=== PATIENT | male | born 1975 | race Caucasian/White ===

== ENCOUNTER 2020-01-23 07:50 | Emergency (ER) | payer OTHER ==
[2020-01-23 08:12] VITALS: BP 122/88
[2020-01-23] MEDS ORDERED: TETANUS/DIPHTHERIA/PERTUSSIS 0.5 ML SYRINGE IM ONE (08:23)
--- NOTE | 2020-01-23 08:24 | ED Physician Documentation ---
PD HPI HEAD INJURY - Stated complaint Stated Complaint: HEAD LAC - Chief complaint Chief Complaint: Laceration - History obtained from History obtained from: Patient - Additional information Additional information: He walked into a sharp metal edge at work. Has a head laceration. Tetanus was 9 years ago. No LOC/RICCI Review of Systems Constitutional: reports: Reviewed and negative Eyes: reports: Reviewed and negative Nose: reports: Reviewed and negative PD PAST MEDICAL HISTORY - Past Surgical History General: Appendectomy - Social History Does the pt smoke?: Yes PD ED PE NORMAL - Vitals Vital signs reviewed: Yes - General General: Alert and oriented X 3, No acute distress - HEENT HEENT: PERRL, EOMI, Other (2 cm shallow laceration just below the hairline on the upper mid forehead) - Neuro Neuro: Alert and oriented X 3, Normal speech Results - Vitals Vitals: Vital Signs - 24 hr 01/23/20 08:06 Temperature 36.3 C L Heart Rate 86 Respiratory 16 Rate Blood Pressure 122/88 H O2 Saturation 99 Oxygen O2 Source Room air Procedures - Laceration (location) forehead Length in cm: 1.5 Wound type: Linear, Superficial Wound Preparation: Irrigated copiously NS Skin layer closure: Dermabond Other: Tetanus booster given Complexity: Simple Departure - Departure Disposition: 01 Home, Self Care Clinical Impression: Laceration Condition: Good Record reviewed to determine appropriate education?: Yes Instructions: ED Laceration Facial Skin Glue Discharge Date/Time: 01/23/20 08:33
== END 2020-01-23 08:33 | disposition home or self-care (01) ==
LOC: ED 07:50
DX: S01.81XA Laceration without foreign body of other part of head, initial encounter (principal); W26.8XXA Contact with other sharp object(s), not elsewhere classified, initial encounter; Y99.0 Civilian activity done for income or pay; F17.200 Nicotine dependence, unspecified, uncomplicated
CPT/HCPCS: 12011; 99281; 99282

== ENCOUNTER 2020-12-16 04:30 | Emergency (ER) | payer OTHER ==
--- NOTE | 2020-12-16 04:59 | ED Physician Documentation ---
History of Present Illness - Stated complaint Stated Complaint: CP - Chief complaint Chief Complaint: Cardiac - History obtained from History obtained from: Patient - Additonal information Additional information: 45-year-old man, smoker, without family history of cardiac disease, remote history of seizure disorder on Lamictal, otherwise healthy, presents with chest pain sudden in onset 7 out of 10 waking him from sleep, sharp, constant, localized to the left superficial chest, reproducible with palpation, improving with ibuprofen ~1 out of 10 at present. Without associated features. endorses chronic nonworsening nonproductive "smoker's cough". denies fever. PERC negative. Review of Systems Ten Systems: 10 systems reviewed and negative Cardiac: reports: Chest pain / pressure PD PAST MEDICAL HISTORY - Past Medical History Cardiovascular: None Respiratory: None Neuro: Seizure disorder Endocrine/Autoimmune: None GI: None : None HEENT: None Psych: None Musculoskeletal: None Derm: None - Past Surgical History Past Surgical History: No General: Appendectomy - Present Medications Home Medications: Ambulatory Orders Medication Instructions Recorded Confirmed No Known Home Medications 12/16/20 12/16/20 - Social History Does the pt smoke?: Yes Smoking Status: Never smoker Does the pt drink ETOH?: No - Immunizations Immunizations are current?: Yes PD ED PE NORMAL - Vitals Vital signs reviewed: Yes - General General: Alert and oriented X 3, No acute distress, Well developed/nourished - HEENT HEENT: Atraumatic, PERRL, EOMI - Neck Neck: Supple, no meningeal sign - Cardiac Cardiac: RRR - Respiratory Respiratory: No respiratory distress, Clear bilaterally - Abdomen Abdomen: Non tender, Non distended - Derm Derm: Normal color - Extremities Extremities: No deformity - Neuro Neuro: Alert and oriented X 3 - Psych Psych: Normal mood, Normal affect Results - Vitals Vitals: Vital Signs - 24 hr 12/16/20 04:46 Heart Rate 91 Respiratory 16 Rate Blood Pressure 132/93 H O2 Saturation 99 Oxygen O2 Source Room air - EKG (time done) 0436 Rate: Rate (enter#) (77) Rhythm: NSR [place]: Normal Intervals: Normal [place] QRS: Normal Ischemia: Other (no STEMI. q waves in lateral precordials) PD MEDICAL DECISION MAKING - ED course ED course: Heart score 0. Patient asymptomatic in the emergency department. 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 Plan to DC home with outpatient follow-up and strict return precautions. Departure - Departure Clinical Impression: Chest pain Condition: Good Instructions: ED Chest Pain NonCardiac Comments: You are seen in the emergency department for evaluation of chest pain. Your vital signs, physical exam, lab work, chest x-ray, and EKG did not show an emergent cause for your pain. Please follow-up with your primary doctor and return to the emergency department you have any new or worsening symptoms or other concerns.
[2020-12-16 05:04] LABS: BASOPHILS # (AUTO) 0.1 10^3/uL (0.0-0.1); BASOPHILS % (AUTO) 1.1 %; EOSINOPHILS # (AUTO) 0.5 10^3/uL (0.0-0.7); EOSINOPHILS % (AUTO) 5.6 %; HCT - HEMATOCRIT 46.6 % (42.0-52.0); HGB - HEMOGLOBIN 16.4 g/dL (14.0-18.0); LYMPHOCYTES # (AUTO) 3.1 10^3/uL (1.5-3.5); LYMPHOCYTES % (AUTO) 33.2 %; MEAN CORPUSCULAR HEMOGLOBIN 33.1 pg (27.0-31.0); MEAN CORPUSCULAR HGB CONC 35.2 g/dL (32.0-36.0); MEAN PLATELET VOLUME 9.6 fL (7.4-11.4); MONOCYTES # (AUTO) 0.8 10^3/uL (0.0-1.0); MONOCYTES % (AUTO) 8.3 %; NEUTROPHILS # (AUTO) 4.8 10^3/uL (1.5-6.6); NEUTROPHILS % (AUTO) 51.6 %; PLT - PLATELET COUNT 215 10^3/uL (130-450); RED BLOOD COUNT 4.96 10^6/uL (4.70-6.10); RED CELL DISTRIBUTION WIDTH 11.6 % (12.0-15.0); WHITE BLOOD COUNT 9.4 x10^3/uL (4.8-10.8)
[2020-12-16 05:21] LABS: ALBUMIN 4.2 g/dL (3.2-5.5); ALBUMIN/GLOBULIN RATIO 1.4 (1.0-2.2); BILIRUBIN,TOTAL 0.9 mg/dL (0.2-1.0); CALCIUM 9.1 mg/dL (8.5-10.3); POTASSIUM 3.9 mmol/L (3.5-5.0); TOTAL PROTEIN 7.1 g/dL (6.7-8.2)
[2020-12-16 05:37] VITALS: BP 121/85
--- NOTE | 2020-12-16 08:15 | XRAY Report ---
PROCEDURE: Chest 1 View X-Ray INDICATIONS: Chest Pain TECHNIQUE: One view of the chest was acquired. COMPARISON: None FINDINGS: Surgical changes and devices: None. Lungs and pleura: No pleural effusions or pneumothorax. Lungs are clear. Mediastinum: Mediastinal contours appear normal. Heart size is normal. Bones and chest wall: No suspicious bony lesions. Overlying soft tissues appear unremarkable. IMPRESSION: No acute pulmonary process. The above findings are concordant with preliminary report. Reviewed by: Sarita Quintana MD on 12/16/2020 8:13 AM PDT Approved by: Sarita Quintana MD on 12/16/2020 8:13 AM PDT Station ID: [id number]
== END 2020-12-16 05:35 | disposition home or self-care (01) ==
LOC: ED 04:30
DX: R07.9 Chest pain, unspecified (principal); F17.200 Nicotine dependence, unspecified, uncomplicated
CPT/HCPCS: 36415; 80053; 83690; 84484; 85025; 93005; 99284